=== PATIENT | female | born 1995 | race Caucasian/White ===

== ENCOUNTER → 2022-04-29 16:00 | Outpatient (BNVA) | payer BC, MEDICAID, SELFPAY | PROVIDERS: Visit Provider Counselor Mental Health | DX: F41.1 Generalized anxiety disorder (principal) | CPT/HCPCS: 90791 ==

== ENCOUNTER → 2022-06-09 17:02 | Outpatient (BNVA) | payer BC, SELFPAY | PROVIDERS: Visit Provider Registered Nurse | DX: Z03.89 Encounter for observation for other suspected diseases and conditions ruled out (principal); G47.10 Hypersomnia, unspecified; R06.83 Snoring; R45.4 Irritability and anger; F41.9 Anxiety disorder, unspecified | CPT/HCPCS: 80053; 82306; 82607; 83036; 83540; 84443; 85025 ==